=== PATIENT | male | born 1960 ===

== ENCOUNTER 2022-12-25 07:21 | Emergency (ER) | payer MEDICARE, MEDICAID ==
[2022-12-25] MEDS ORDERED: HYDROmorphone 1 MG/ML Syringe IM ONE (07:52)
== END 2022-12-25 09:30 | disposition home or self-care (01) ==
LOC: JD.ED 07:21
DX: M54.42 Lumbago with sciatica, left side (principal); N18.6 End stage renal disease; F17.210 Nicotine dependence, cigarettes, uncomplicated; Z99.2 Dependence on renal dialysis
CPT/HCPCS: 72100; 96372; 99283; J1170